=== PATIENT | male | born 1960 | race Caucasian/White ===

== ENCOUNTER 2021-06-29 10:04 | Emergency (ER) | payer OTHER ==
[~2021-06-29] VITALS: Ht 175.3 cm; Wt 92.0 kg
[2021-06-29] MEDS ORDERED: ERYT1OIN3 LEFTEYE (10:27)
[2021-06-29] MEDS ORDERED: TETRACAINE 0.5% OPHTH SOLUTION 4ML BOTTLE. OS ONE (10:30)
[2021-06-29] MEDS ORDERED: FLUORESCEIN 1MG EYE STRIP. OS ONE (10:30)
--- NOTE | 2021-06-29 10:31 | PHYS DOC ---
Past History Additional Past Medical Histor: urination (FERNANDO SMITH APRN) Past Surgical History: No Surgical History (FERNANDO SMITH APRN) Alcohol Use: None (FERNANDO SMITH APRN) General Adult EDM: Chief Complaint: EYE PROBLEMS HPI: HPI: Patient is a 61-year-old male being seen in the ER for left eye irritation. Patient reports that it feels like there is something in his eye. He was seen by his primary care provider who referred him to ophthalmology. He saw ophthalmology and had a full eye exam and they reported that he had a normal exam. Patient reports occasional diplopia. He has a history of dry eyes. He denies tearing, crusting, nasal congestion or drainage, sore throat, vision loss, fevers. (FERNANDO SMITH APRN) Review of Systems: Review of Systems: 14 body systems of the review of systems have been reviewed. See HPI for pertinent positive and negative responses, otherwise all other systems are negative, nonpertinent or noncontributory (FERNANDO SMITH APRN) Physical Exam: PE: Constitutional: Well developed, well nourished, no acute distress, non-toxic appearance. [] HENT: Normocephalic, atraumatic, bilateral external ears normal, oropharynx moist, no oral exudates, nose normal. [] Eyes: PERRLA, EOMI, conjunctiva normal, no discharge, left upper eyelid appears to be inflamed with mild swelling and redness. [] Neck: Normal range of motion, no stridor Cardiovascular: Normal peripheral perfusion Lungs & Thorax: Normal work of breathing, no tachypnea Skin: Warm, dry, no erythema, no rash. [] Back: Normal range of motion Extremities: No tenderness, no cyanosis, no clubbing, ROM intact, no edema. [] Neurologic: Alert and oriented X 3, normal motor function, normal sensory function, no focal deficits noted. [] Psychologic: Affect normal, judgement normal, mood normal. [] (FERNANDO SMITH APRN) Current Patient Data: Vital Signs: Vital Signs Date Time Temp Pulse Resp B/P (MAP) Pulse Ox O2 Delivery O2 Flow Rate FiO2 06/29/21 10:14 98.4 80 16 178/106 98 Room Air (FERNANDO SMITH APRN) EKG: EKG: [] (FERNANDO SMITH APRN) Radiology/Procedures: Radiology/Procedures: [] (FERNANDO SMITH APRN) Heart Score: C/O Chest Pain: No Risk Factors: Risk Factors: DM, Current or recent (<one month) smoker, HTN, HLP, family history of CAD, obesity. Risk Scores: Score 0 - 3: 2.5% MACE over next 6 weeks - Discharge Home Score 4 - 6: 20.3% MACE over next 6 weeks - Admit for Clinical Observation Score 7 - 10: 72.7% MACE over next 6 weeks - Early Invasive Strategies (FERNANDO SMITH APRN) Course & Med Decision Making: Course & Med Decision Making Pertinent Labs and Imaging studies reviewed. (See chart for details) Patient is a 61-year-old male being seen in the ER for left eye irritation. Left eye was examined with tetracaine and fluorescein and there was no abrasions or foreign bodies found. Patient tolerated procedure. His left upper eye lid appears to be inflamed with mild swelling and redness. Patient will be treated for blepharitis with erythromycin eye ointment. Patient advised to follow-up with his eye doctor. Patient's blood pressure was elevated in the ER. This was rechecked prior to discharge and it was 148/86. I discussed with patient all findings and diagnostic testing as well as the need to follow-up with PCP for further evaluation and treatment or return to the ER if any new or worsening symptoms. Strict return precautions were also discussed at length. Patient voiced understanding and agreement with the plan. Patient is hemodynamically stable at the time of disposition. (FERNANDO SMITH APRN) Course & Med Decision Making I was the Attending physician on the above date of service of this patient. This patient was evaluated, examined, treated, and dispositioned from the emergency department by the mid-level practitioner. Although I was working at the time , no assistance was requested. Electronically signed, Cynede Harding DO (CYNDEE HARDING DO) Betzy Disclaimer: Betzy Disclaimer: This electronic medical record was generated, in whole or in part, using a voice recognition dictation system. (FERNANDO SMITH APRN) Departure Departure: Impression: Primary Impression: Blepharitis Qualified Codes: H01.004 - Unspecified blepharitis left upper eyelid Disposition: HOME / SELF CARE / HOMELESS Condition: GOOD Referrals: SHIVA BOBO (PCP) Patient Instructions: Blepharitis Additional Instructions: You were seen in the ER for left eye heaviness. We used a special eliminating dye to look for any abrasions or foreign bodies and there were none seen. It is likely that you have something called blepharitis which is eyelid inflammation. You are being treated with an antibiotic eye ointment. Please use this as directed. If you continue to have symptoms he will need to follow-up with an eye doctor again. If you develop severe eye pain, loss of vision, headache, lightheadedness, intractable nausea or vomiting please return to the ER immediately. EMERGENCY DEPARTMENT GENERAL DISCHARGE INSTRUCTIONS Thank you for coming to [facility] (ED) today and trusting us with you care. We trust that you had a positivie experience in our Emergency Department. If you wish to speak to the department management, you may call the director at [phone]. YOUR FOLLOW UP INSTRUCTIONS ARE FOLLOWS: 1. Do you have a private Doctor? If you do not have a private doctor, please ask for a resource list of physicians or clinics that may be able to assist you with follow up care. 2. The Emergency Physician has interpreted your x-rays. The X-Ray specialist will also review them. If there is a change in the findings, you will be notified in 48 hours when at all possible. 3. A lab test or culture has been done, your results will be reviewed and you will be notified if you need a change in treatment. ADDITIONAL INSTRUCTIONS AND INFORMATION: 1. Your care today has been supervised by a physician who is specially trained in emergency care. Many problems require more than one evaluation for a complete diagnosis and treatment. We recommend that you schedule your follow up appointment as recommended to ensure complete treatment of you illness or injury. If you are unable to obtain follow up care and continue to have a problem, or if your condition worsens, we recommend that you return to the ED. 2. We are not able to safely determine your condition over the phone nor are we able to give sound medical advice over the phone. For these safety reasons, if you call for medical advice we will ask you to come to the ED for further evaluation. 3. If you have any questions regarding these discharge instructions please call the ED at [phone]. SAFETY INFORMATION: In the interest of safety, wellness, and injury prevention; we encourage you to wear your sealbelt, if you smoke; quite smoking, and we encourage family to use a protective helmet for bicycling and other sporting events that present an increased risk for head injury. IF YOUR SYMPTOMS WORSEN OR NEW SYMPTOMS DEVELOP, OR YOU HAVE CONCERNS ABOUT YOUR CONDITION; OR IF YOUR CONDITION WORSENS WHILE YOU ARE WAITING FOR YOUR FOLLOW UP APPOINTMENT; EITHER CONTACT YOUR PRIMARY CARE DOCTOR, THE PHYSICIAN WHOSE NAME AND NUMBER YOU WERE GIVEN, OR RETURN TO THE ED IMMEDIATELY. Scripts Erythromycin Base (ERYTHROMYCIN) 3.5 Gm Oint...g. 1 RHODA LEFTEYE TID for blepharitis for 30 Days, #3.5 GM 0 Refills Prov: FERNANDO SMITH APRN 06/29/21 FERNANDO SMITH APRN Jun 29, 2021 10:30 CYNDEE HARDING DO Jun 30, 2021 06:11
[2021-06-29 10:40] VITALS: BP 148/86
== END 2021-06-29 10:45 | disposition home or self-care (01) ==
LOC: ER 10:04
DX: H01.004 Unspecified blepharitis left upper eyelid (principal)
CPT/HCPCS: 99283